=== PATIENT | male | born 1970 | race Caucasian/White ===

== ENCOUNTER 2020-03-14 14:06 | Emergency (ER) | payer BC ==
[2020-03-14] MEDS ORDERED: PHENYLEPHRINE-NS 100 MCG/ML 10 ML SYRINGE ONE (14:28)
[2020-03-14] MEDS ORDERED: Dexamethasone 20 MG/5 ML VIAL ONE (14:28)
[2020-03-14] MEDS ORDERED: Ketorolac Tromethamine 30 MG/ML VIAL ONE (14:28)
[2020-03-14] MEDS ORDERED: PROPOFOL 200 MG/20 ML VIAL ONE (14:28)
[2020-03-14] MEDS ORDERED: diphenhydrAMINE 50 MG/ML VIAL ONE (14:28)
[2020-03-14] MEDS ORDERED: EPHEDRINE 25 MG/5 ML SYRINGE ONE (14:28)
[2020-03-14] MEDS ORDERED: Ondansetron PF 4 MG/2 ML Vial ONE (14:28)
[2020-03-14] MEDS ORDERED: Lidocaine 1% (PF) 30 ML VIAL ONE (15:31)
[2020-03-14] MEDS ORDERED: Adacel (T-DAP) 0.5 ML SYRINGE ONE (15:32)
--- NOTE | 2020-03-14 15:34 | RAD ---
EXAM: 3 views of the right index finger HISTORY: Table saw laceration to the index finger COMPARISON: None FINDINGS: There may be small bony fragments adjacent to the dorsal aspect of the DIP joint of the fin azar. Moderate overlying soft tissue swelling is seen. No radiopaque foreign body is seen. No degenerative changes are present. No radiopaque foreign body is seen. IMPRESSION: Possible small fracture fragments adjacent to the DIP joint of the index finger
[2020-03-14] MEDS ORDERED: Bupivacaine PF 0.5% 30 ML VIAL ONE (16:26)
[2020-03-14] MEDS ORDERED: Bacitracin Zinc Ointment 30 gm TUBE ONE (16:27)
[2020-03-14] MEDS ORDERED: Sodium Chloride 0.9% 10 ML ONE (16:27)
[2020-03-14] MEDS ORDERED: Sodium Chloride 0.9% 0 ML ONE (16:33)
[2020-03-14] MEDS ORDERED: Sodium Chloride 0.9% 30 ML ONE (16:35)
[2020-03-14] MEDS ORDERED: Fentanyl 250 MCG/5 ML VIAL ONE (16:55)
[2020-03-14] MEDS ORDERED: Midazolam HCl 2 mg/2 ml Vial ONE (16:55)
[2020-03-14] MEDS ORDERED: CEFAZOLIN 1 GM VIAL ONE (17:05)
[2020-03-14] MEDS ORDERED: Gentamicin 80 MG/2 ML VIAL ONE (17:36)
[2020-03-14] MEDS ORDERED: Gentamicin Sulfate 80 MG in Premix Bag 1 BAG IVPB SCH (17:45)
[2020-03-14] MEDS ORDERED: Vancomycin 1 GM/200 ML BAG ONE (20:22)
[2020-03-14] MEDS ORDERED: HYDROcodone/Acetaminophen 5/325 mg Tablet ONE (20:22)
== END 2020-03-14 17:55 | disposition admitted as inpatient to this hospital (09) ==
LOC: ERS 14:06
DX: S62.600B Fracture of unspecified phalanx of right index finger, initial encounter for open fracture (principal); I10 Essential (primary) hypertension; Z23 Encounter for immunization; Z79.899 Other long term (current) drug therapy; W27.8XXA Contact with other nonpowered hand tool, initial encounter
CPT/HCPCS: 90471; 90715; 96365; J0690; J1100; J1200; J1580; J1885; J2001; J2250; J2405; J2704; J3010; J3370; J3490; S0020